=== PATIENT | male | born 1955 | race Caucasian/White ===

== ENCOUNTER 2018-07-20 14:11 | Emergency (ER) | payer OTHER, BC ==
[2018-07-20 14:58] VITALS: BP 139/98; PULSE 51; TEMP 97.7; BMI 27.1
[2018-07-20] MEDS ORDERED: KETOROLAC TROMETHAMINE 60 MG/2 ML VIAL IM ONE (15:05)
[2018-07-20] MEDS ORDERED: CYCLOBENZAPRINE HCL 10 MG TABLET (FP) PO ONE (15:05)
[2018-07-20] MEDS ORDERED: KETOROLAC TROMETHAMINE 60 MG/2 ML VIAL ONE (15:08)
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
--- NOTE | 2018-07-21 10:01 | EKG ---
Test Reason : Blood Pressure : / mmHG Vent. Rate : 050 BPM Atrial Rate : 050 BPM P-R Int : 156 ms QRS Dur : 092 ms QT Int : 458 ms P-R-T Axes : 079 084 074 degrees QTc Int : 417 ms SINUS BRADYCARDIA OTHERWISE NORMAL ECG WHEN COMPARED WITH ECG OF 05-SEP-2011 14:13, PREMATURE VENTRICULAR COMPLEXES ARE NO LONGER PRESENT Confirmed by MARIA ELENA LUNA MD ([id number]) on 07/21/2018 10:01:32 AM Referred By: Confirmed By:MARIA ELENA LUNA MD
== END 2018-07-20 15:20 | disposition home or self-care (01) ==
LOC: JER 14:11
PROC: 3E0233Z Introduction of Anti-inflammatory into Muscle, Percutaneous Approach (ICD-10-PCS; principal; 2018-07-20)
DX: S19.80XA Other specified injuries of unspecified part of neck, initial encounter (principal); V49.49XA Driver injured in collision with other motor vehicles in traffic accident, initial encounter; Y92.488 Other paved roadways as the place of occurrence of the external cause; Y93.89 Activity, other specified; Y99.8 Other external cause status
CPT/HCPCS: 93005; 93010; 99282-25